=== PATIENT | male | born 1950 | race Caucasian/White ===

== ENCOUNTER 2024-03-16 06:29 | Day surgery (SDC) | payer OTHER ==
[~2024-03-16] VITALS: Ht 172.7 cm; Wt 88.5 kg
[~2024-03-16 06:29] MED LIST: ceFAZolin SODIUM 2 GM VIAL IM ONE
[2024-03-16] MEDS ORDERED: CEFAZOLIN SOD 2 GM in D5W 50 ML IV ONE (07:00)
[2024-03-16] MEDS ORDERED: MEPERIDINE 100 MG INJ. 100 MG/ML VIAL ONE (07:59)
[2024-03-16] MEDS ORDERED: MIDAZOLAM HCL 5 MG/5 ML VIAL ONE (08:00)
[2024-03-16 12:36] VITALS: O2SAT 98
[2024-03-16 15:58] VITALS: BP_SYST 130; PULSE 55; RESP 14
== END 2024-03-16 10:36 | disposition home or self-care (01) ==
LOC: SDS 06:29 → SMU 06:32 → SDS 10:36
PROVIDERS: ATTEND Internal Medicine Gastroenterology
DX: R13.10 Dysphagia, unspecified (principal); I10 Essential (primary) hypertension; E78.5 Hyperlipidemia, unspecified; E11.9 Type 2 diabetes mellitus without complications; E03.9 Hypothyroidism, unspecified; K21.9 Gastro-esophageal reflux disease without esophagitis; Z90.49 Acquired absence of other specified parts of digestive tract; Z95.1 Presence of aortocoronary bypass graft; Z98.890 Other specified postprocedural states; Z87.891 Personal history of nicotine dependence; Z79.82 Long term (current) use of aspirin; Z79.84 Long term (current) use of oral hypoglycemic drugs; Z79.890 Hormone replacement therapy; Z79.899 Other long term (current) drug therapy
CPT/HCPCS: 43246; 99152; 82948; G0378; J0690; J2250; J2175; J7060